=== PATIENT | male | born 1950 | race Caucasian/White ===

== ENCOUNTER → 2017-02-21 | Outpatient (CLI) | payer MEDICARE, OTHER ==
[~2017-02-21] MED LIST: ASP81TEC PO; CITA-105 PO; DILT120C85 PO; DULO60CA58 PO; FINA5TAB6 PO; ISM60TCR PO; ISOS30TA74 PO; LORA10TA7 PO; MELO-195 PO; METO-333 PO; SIMV20TA3 PO; TAMS0.4C2 PO; TRAZ150T42 PO
== END ==
LOC: CARD 12:39
PROVIDERS: ATTEND Internal Medicine Cardiovascular Disease
DX: I25.10 Atherosclerotic heart disease of native coronary artery without angina pectoris (principal); I10 Essential (primary) hypertension; E78.2 Mixed hyperlipidemia; Z72.0 Tobacco use
CPT/HCPCS: 93306

== ENCOUNTER 2017-05-29 10:50 | Outpatient (RCR) | payer MEDICARE, OTHER | END 2017-06-02 | disposition home or self-care (01) | PROVIDERS: ATTEND Orthopaedic Surgery | DX: Z47.89 Encounter for other orthopedic aftercare (principal); M25.512 Pain in left shoulder; M25.812 Other specified joint disorders, left shoulder ==

== ENCOUNTER → 2017-08-06 | Outpatient (CLI) | payer MEDICARE, OTHER ==
[~2017-08-06] MED LIST changes: +ASPI-586 PO; +BUDE10.2 IH; +CATHETER FLUSH 10 ML SYR IV PRN; +CLOP75TA28 PO; +REGADENOSON 0.4 MG/5 ML SYR (LEXISCAN) IV ONE
[2017-08-06 13:20] VITALS: BP 151/81
--- NOTE | 2017-08-07 01:06 | STRESS TEST ---
DATE OF SERVICE: 08/06/2017 LEXISCAN MYOVIEW STRESS TEST REPORT REFERRING PHYSICIAN: Dr. Naya Sutton. Baseline heart rate is 67. Baseline blood pressure is 142/73. Baseline EKG is sinus rhythm with no ischemic changes. In summary, the patient was injected with 10.89 mCi of technetium-99 Myoview and the resting images were obtained. Then, the patient received 0.4 mg of Lexiscan followed by 29.6 mCi of technetium-99 Myoview. Throughout the test, there were no EKG changes. The resting and stress images were reviewed and compared in the short axis, horizontal long axis, and vertical long axis views. Review of the images showed diaphragmatic attenuation with fixed defect involving the whole inferior wall and inferolateral wall with mild reversibility. SSS is 11, SDS 3 and TID value 1.06. On the gated images, the left ventricle appeared to be prominent with end diastolic volume of 108 mL, hypokinesia at the inferior wall and inferoseptum with calculated ejection fraction of 46%. CONCLUSION: 1. The patient tolerated Lexiscan well. 2. Diaphragmatic attenuation with fixed defect involving the whole inferior wall and inferoapical segment with mild ischemia at the inferoapical segment and inferolateral wall. 3. Prominent left ventricle with hypokinesia at the inferior wall and inferoseptum with calculated ejection fraction of 46%. 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
== END ==
LOC: CARD 11:27
PROVIDERS: ATTEND Internal Medicine Cardiovascular Disease
DX: I25.10 Atherosclerotic heart disease of native coronary artery without angina pectoris (principal); I10 Essential (primary) hypertension; E78.2 Mixed hyperlipidemia; Z72.0 Tobacco use
CPT/HCPCS: 78452; 93017

== ENCOUNTER → 2017-08-07 | Outpatient (CLI) | payer MEDICARE, OTHER ==
[~2017-08-07] MED LIST changes: -CATHETER FLUSH 10 ML SYR IV PRN; -REGADENOSON 0.4 MG/5 ML SYR (LEXISCAN) IV ONE
== END ==
LOC: CARD 12:12
PROVIDERS: ATTEND Internal Medicine Cardiovascular Disease
DX: I25.10 Atherosclerotic heart disease of native coronary artery without angina pectoris (principal); I10 Essential (primary) hypertension; E78.5 Hyperlipidemia, unspecified; Z72.0 Tobacco use; I34.0 Nonrheumatic mitral (valve) insufficiency
CPT/HCPCS: 93306

== ENCOUNTER 2017-08-12 09:07 | Outpatient (RCR) | payer MEDICARE, OTHER ==
[~2017-08-12 09:07] MED LIST changes: -ASPI-586 PO; -BUDE10.2 IH; -CLOP75TA28 PO
[2017-08-13] MEDS ORDERED: CLOP75TA28 PO (09:53)
[2017-08-13] MEDS ORDERED: BUDE10.2 IH (09:53)
[2017-08-13] MEDS ORDERED: ASPI-586 PO (09:54)
== END 2017-08-12 09:32 | disposition home or self-care (01) ==
PROVIDERS: ATTEND Orthopaedic Surgery
DX: Z47.89 Encounter for other orthopedic aftercare (principal); M25.512 Pain in left shoulder; M25.812 Other specified joint disorders, left shoulder

== ENCOUNTER 2017-08-13 08:29 | Day surgery (SDC) | payer MEDICARE, OTHER ==
[~2017-08-13] VITALS: Ht 167.6 cm; Wt 83.0 kg
[2017-08-13] VITALS (10 sets, daily range): BP systolic 135–164; BP diastolic 77–96
[2017-08-13] MEDS ORDERED: NS IV 1000 ML 3,000 ML ONE (08:38)
[2017-08-13] MEDS ORDERED: LIDOCAINE 1% INJ 20 ML 20 ML VIAL ONE (08:38)
[2017-08-13] MEDS ORDERED: HEParin 1000 UNIT/ML (10ML VIAL) FOR BOLUS ONE (08:50)
[2017-08-13] MEDS ORDERED: NS IV 1000 ML 1,000 ML IV SCH ×2 (09:00→14:01)
[2017-08-13 09:39] LABS: BILIRUBIN,URINE NEGATIVE (NEGATIVE); CLARITY,URINE CLEAR; COLOR,URINE YELLOW; GLUCOSE, URINE (UA) NEGATIVE (NEGATIVE); KETONES,URINE 1+ (NEGATIVE); LEUKOCYTE ESTERASE ,URINE 1+ (NEGATIVE); MEAN PLATELET VOLUME 9.4 FL (7.4-10.4); NITRITE,URINE NEGATIVE (NEGATIVE); PH,URINE 5 (5-9); PROTEIN,URINE 1+ (NEGATIVE); RED BLOOD COUNT 4.93 10^6/uL (4.35-5.85); UROBILINOGEN,URINE 1 MG/DL (NORMAL); WHITE BLOOD COUNT 8.4 10^3/uL (4.3-11.0)
[2017-08-13 09:42] LABS: HEMOGLOBIN 15.3 G/DL (13.3-17.7)
[2017-08-13 09:48] LABS: ALANINE AMINOTRANSFERASE 11 U/L (0-55); ALBUMIN 3.9 GM/DL (3.2-4.5); ALKALINE PHOSPHATASE 87 U/L (40-136); BILIRUBIN,TOTAL 0.4 MG/DL (0.1-1.0); BUN/CREATININE RATIO 15; CALCIUM 8.8 MG/DL (8.5-10.1); CARBON DIOXIDE 24 MMOL/L (21-32); CHLORIDE 112 MMOL/L (98-107); CHOLESTEROL 144 MG/DL (< 200); CREATININE SERUM 0.97 MG/DL (0.60-1.30); GFR ESTIMATED > 60; GLUCOSE 134 MG/DL (70-105); HDL CHOLESTEROL 27 MG/DL (40-60); POTASSIUM 3.8 MMOL/L (3.6-5.0); SODIUM 144 MMOL/L (135-145); TOTAL PROTEIN 7.2 GM/DL (6.4-8.2); TRIGLYCERIDES 135 MG/DL (<150); VLDL CHOLESTEROL 27 MG/DL (5-40)
[2017-08-13 09:51] LABS: BACTERIA,URINE TRACE /HPF; SQUAMOUS EPITHELIAL CELL,UR 0-2 /HPF; WBC,URINE 0-2 /HPF
[2017-08-13] MEDS ORDERED: BUDE10.2 IH (09:53)
[2017-08-13] MEDS ORDERED: CLOP75TA28 PO (09:53)
--- NOTE | 2017-08-13 09:53 | Diagnostic Imaging Report ---
INDICATION: Coronary artery disease and hypertension. Comparison is made with prior exam from 03/10/2012. FINDINGS: The heart is mildly enlarged but stable. There are changes of median sternotomy and CABG. No infiltrates are detected. There is no failure. No effusion or pneumothorax is seen. There are postop changes in the lower cervical spine. IMPRESSION: Status post CABG. No acute cardiopulmonary process is detected. Dictated by: Dictated on workstation # [id number]
[2017-08-13] MEDS ORDERED: ASPI-586 PO (09:54)
[2017-08-13 09:55] LABS: PROTHROMBIN TIME PATIENT 12.9 SEC (12.2-14.7)
[2017-08-13] MEDS ORDERED: fentaNYL INJECTION 100 MCG/2 ML AMP ONE (13:10)
[2017-08-13] MEDS ORDERED: MIDAZOLAM 5 MG/5 ML (VERSED) VIAL ONE (13:10)
--- NOTE | 2017-08-13 14:00 | Cardiac Procedure Note-CS/ASA ---
Pre-Procedure Note Pre-Op Procedure Note H&P Reviewed The H&P was reviewed, patient examined and no changes noted. Date H&P Reviewed: August 13, 2017 Time H&P Reviewed: 14:00 Conscious Sedation Pre-Proced Time Reviewed: 14:00 ASA Class: 3 Airway Mallampati Classification: (zuni appropriate class) I. II. III, IV Lungs Heart ASA score ASA 1: a normal healthy patient ASA 2: a patient with a mild systemic disease (mid diabetes, controlled hypertension, obesity x ASA 3: a patient with a severe systemic disease that limits activity (angina , COPD, prior Myocardial infarction) ASA 4: a patient with an incapacitating disease that is a constant threat to life (CHF, renal failure) ASA 5: a moribund patient not expected to survive 24 hrs. (ruptured aneurysm) ASA 6: a declared brain patient whose organs are being harvested. For emergent operations, add the letter E after the classification Grade 3 Sedation Plan: Analgesia, Amnesia, Plan communicated to team members, Discussed options with patient/fam, Discussed risks with patient/fam Note The patient is an appropriate candidate to undergo the planned procedure, sedation, and anesthesia. The patient immediately re-assessed prior to indication. DAVID TERESA MD August 13, 2017 14:00
--- NOTE | 2017-08-13 14:02 | Discharge Inst-Post CATH ---
Discharge Inst-CATH Post Cardiac Cath D/C Inst Follow Up/Plan Appointment with Dr. Tovar's office in 2-4 weeks CARDIAC CATH DISCHARGE INSTRUCTIONS *Hold Metformin for 48 hours post heart cath. ACTIVITY * Go Home directly and rest. * Limit activity of the leg (or wrist if it was used) for 7 days including aerobics, swimming, jogging, bicycling, etc. * Restrict stair-climbing for 7 days if possible, if not, climb up with your non -cath leg, then bring together on the same step. * Avoid lifting, pushing, pulling or excessive movement of the affected extremity for 7 days. * Customary sexual activity may be resumed after 2 days-use caution not to use a position that strains or causes pain to the affected extremity. * No driving for 24 hours. * NO SMOKING. * Avoid straining for bowel movements for 7 days. * Gentle walking on level ground is allowed. * Returning to work will depend on the type of procedure and the results. Your doctor will discuss this with you. CALL YOUR DOCTOR FOR ANY OF THE FOLLOWING: *If bleeding from the puncture site occurs- Apply gentle pressure to site with clean cloth and call your doctor or EMS. * If a knot or lump forms under the skin, increases in size, or causes pain. * If bruising appears to be worsening or moving further down your leg instead of disappearing. * Temperature above 101 F. CARE OF YOUR GROIN INCISION; * Bruising or purple discoloration of the skin near the puncture site is common. * You may shower only, no bathtub bathing for 5 days. Be careful to avoid slipping as your leg may feel stiff. * If a closure device was used on your femoral artery, please see the attached guide regarding care of the device and your leg. * REMOVE the dressing from your groin the next day after your procedure in the shower. CARE OF YOUR WRIST INCISION; * Bruising or purple discoloration of the skin near the puncture site is common. * You may shower. * DO NOT submerge wrist. * Remove dressing in 24 hours. DAVID TOVAR MD August 13, 2017 14:02
--- NOTE | 2017-08-13 14:06 | Cardiac Cath Report ---
Cardiac Cath Report Physician (s)/Chief Medical Technologist (s) Physician DAVID TERESA MD Pre-Procedure Diagnosis Pre-Procedure Diagnosis: Coronary artery disease Post-Procedure Note Procedure Start Date: August 13, 2017 Name of Procedure: Left heart catheterization Vein graft angiogram ZIEGLER angiogram Abdominal aortogram Findings/Procedure Note PROCEDURE NOTE: After explaining the procedure to the patient, all pros and cons were explained , all questions were answered. The patient signed the consent and then he was placed on the cardiac catheterization laboratory. Groin was prepped SL fashion local anesthesia was used. Sheath placed in the right femoral artery. Cait right and left catheter were used to access the coronary system, I had difficulties advancing the J-wire across the abdominal aorta, a long exchange wire was used throughout the procedure.Vein Graft evaluated. ZIEGLER evaluated. Pigtail was used to access the left ventricular cavity, pressure was measured, no left ventricular gram was done, the pigtail catheter was placed in the abdominal aorta and evaluate her abdominal aortogram At the end of the procedure the sheath was removed. Closure device was used FINDINGS: Hemodynamics LV 153/20, end-diastolic pressure of 20 Aorta 151/73 mean of 107 ANATOMY: Left Main has mild disease nonobstructive disease Left Anterior Descending has severe disease with patent ZIEGLER to LAD Left Circumflex has [id number] disease nonobstructive disease Right Coronory Artery is occluded and the vein graft is occluded, the distal right is receiving collateral from the left system ZIEGLER to LAD is patent with good flow distally Vein Graft to the right coronary artery is occluded LV Gram was not done, pressure was measured Abdominal aortogram was done in the AP position showed atherosclerotic disease in the abdominal aorta, no dissection or aneurysm, the renal arteries appeared to be normal with no obstructive disease, the superior and inferiorly eccentric arteries appeared normal with no obstructive disease CONCLUSION: 1. Occluded right coronary artery and the vein graft to the right coronary artery with collaterals filling the distal right from the left system 2. Patent ZIEGLER to LAD, the [place] LAD has significant disease proximally. 3. Mild to moderate disease in the circumflex artery nonobstructive disease DISCUSSION AND RECOMMENDATION: Medical therapy is recommended no intervention is warranted, patient already has collaterals to the distal right coronary artery. Anesthesia Type: Conscious Sedation Estimated blood loss (mL): 15 ml Contrast Amount: 72 ml Total Radiation Dose: 376 mGy Post-Procedure Diagnosis Post-operative diagnosis: Chest pain resembling angina Coronary artery disease Hypertension Hyperlipidemia MALICK,BASHAR J MD August 13, 2017 14:06
[2017-08-13] MEDS ORDERED: PATIENT MAY USE OWN MEDS, ALL PO SCH (14:15)
== END 2017-08-13 18:42 | disposition home or self-care (01) ==
LOC: CATH 08:29 → ICU 14:18 → CATH 18:42
PROVIDERS: ATTEND Internal Medicine Cardiovascular Disease
DX: R07.9 Chest pain, unspecified (principal); I25.10 Atherosclerotic heart disease of native coronary artery without angina pectoris; I10 Essential (primary) hypertension; E78.5 Hyperlipidemia, unspecified
CPT/HCPCS: 36415; 71045; 75625; 80053; 80061; 81000; 85027; 85610; 85730; 87081; 93459

== ENCOUNTER → 2018-05-25 | Outpatient (CLI) | payer MEDICARE, OTHER ==
[~2018-05-25] MED LIST changes: +ASPI-586 PO; +BUDE10.2 IH; +CLOP75TA28 PO
== END ==
LOC: CARD 09:24
PROVIDERS: ATTEND Physician Assistant
DX: R07.89 Other chest pain (principal); I25.10 Atherosclerotic heart disease of native coronary artery without angina pectoris; I10 Essential (primary) hypertension; E78.2 Mixed hyperlipidemia; I08.0 Rheumatic disorders of both mitral and aortic valves; Z72.0 Tobacco use
CPT/HCPCS: 93306

== ENCOUNTER → 2018-11-20 | Outpatient (CLI) | payer MEDICARE, OTHER ==
[~2018-11-20] MED LIST changes: -DULO60CA58 PO; +DULO60CA59 PO
[2018-11-20 11:36] LABS: ALBUMIN 4.3 GM/DL (3.2-4.5); BILIRUBIN,TOTAL 0.4 MG/DL (0.1-1.0); CALCIUM 9.7 MG/DL (8.5-10.1); CREATININE SERUM 1.26 MG/DL (0.60-1.30); POTASSIUM 4.1 MMOL/L (3.6-5.0)
== END ==
LOC: LAB 11:00
PROVIDERS: ATTEND Physician Assistant
DX: I25.10 Atherosclerotic heart disease of native coronary artery without angina pectoris (principal); I10 Essential (primary) hypertension; E78.2 Mixed hyperlipidemia; Z72.0 Tobacco use
CPT/HCPCS: 36415; 80053; 80061

== ENCOUNTER 2019-07-25 23:35 | Emergency (ER) | payer MEDICARE, OTHER ==
[~2019-07-25] VITALS: Ht 167 cm; Wt 84.0 kg
[~2019-07-25 23:35] MED LIST changes: +SIMV20TA26 PO
[2019-07-26] MEDS ORDERED: DOXYCYCLINE 100 MG (VIBRAMYCIN) TABLET PO ONE (00:15)
[2019-07-26] MEDS ORDERED: HYDROcodone/APAP 5 MG/325 MG (LORTAB) TAB PO ONE (00:15)
[2019-07-26] MEDS ORDERED: HYDR-83 PO (00:20)
[2019-07-26] MEDS ORDERED: DOXY100T2 PO (00:20)
--- NOTE | 2019-07-26 00:22 | ED General ---
General Chief Complaint: Lower Extremity Stated Complaint: R ANKLE PAIN Nursing Triage Note: TO ED VIA POV AND REQUESTED W/C INTO WAITING ROOM. C/O RIGHT ANKLE PAIN. Nursing Sepsis Screen: No Definite Risk Source of Information: Patient Exam Limitations: No Limitations History of Present Illness Date Seen by Provider: July 25, 2019 Time Seen by Provider: 23:52 Initial Comments This 60-year-old gentleman presents to the emergency room with pain and erythema near and oriented insect bite on the right medial malleolus. The insect bite had been there for a few days and the pain started today. He has erythema in about a 3 cm diameter around the bite. He is afebrile. He denies any injury to the ankle. Allergies and Home Medications Allergies Coded Allergies: atorvastatin calcium (Verified Allergy, Unknown, 03/10/12) Home Medications Aspirin 81 Mg Tablet.dr, 81 MG PO DAILY, (Reported) Budesonide/Formoterol Fumarate 10.2 Gm Hfa.aer.ad, 2 PUFF IH BID, (Reported) Clopidogrel Bisulfate 75 Mg Tablet, 75 MG PO DAILY, (Reported) Diltiazem HCl 120 Mg Capsule.er, 120 MG PO HS, (Reported) Doxycycline Hyclate 100 Mg Tablet, 100 MG PO BID Prescribed by: JORDAN ORDOÑEZ on 07/26/19 0020 Duloxetine HCl 60 Mg Capsule.dr, 60 MG PO DAILY, (Reported) Hydrocodone/Acetaminophen 1 Each Tablet, 1 EACH PO Q6H PRN for PAIN-SEVERE (8- 10) Prescribed by: JORDAN ORDOÑEZ on 07/26/19 0021 Isosorbide Mononitrate 60 Mg Tab, 60 MG PO DAILY, (Reported) Metoprolol Tartrate 25 Mg Tablet, 12.5 MG PO BID, (Reported) TAKES 1/2 (25MG) TABLET Simvastatin 20 Mg Tablet, 20 MG PO HS, (Reported) Patient Home Medication List Home Medication List Reviewed: Yes Review of Systems Review of Systems Constitutional: no symptoms reported EENTM: no symptoms reported Respiratory: no symptoms reported Cardiovascular: no symptoms reported Gastrointestinal: no symptoms reported Genitourinary: no symptoms reported Musculoskeletal: see HPI Skin: see HPI Psychiatric/Neurological: No Symptoms Reported Hematologic/Lymphatic: No Symptoms Reported Past Ufcnwuc-Jogagz-Stltuu Hx Past Med/Social Hx: Reviewed Nursing Past Med/Soc Hx Patient Social History Alcohol Use: Denies Use Recreational Drug Use: No Smoking Status: Current Everyday Smoker Type Used: Cigarettes Recent Foreign Travel: No Contact w/Someone Who Travel: No Recent Infectious Disease Expo: No Recent Hopitalizations: No Physical Abuse: No Sexual Abuse: No Mistreated: No Fear: No Immunizations Up To Date Tetanus Booster (TDap): Unknown Date of Pneumonia Vaccine: Mar 11, 2012 Date of Influenza Vaccine: Feb 18, 2012 Seasonal Allergies Seasonal Allergies: Yes Past Medical History Surgeries: Yes (triple bypass, ing hernia x3, LEFT SHOULDER, NECK) CABG, Orthopedic, Prostatectomy Respiratory: Yes COPD Cardiac: Yes (triple bypass 1998) Hypertension Neurological: No Reproductive Disorders: No Genitourinary: No Prostate Problems Gastrointestinal: No Musculoskeletal: Yes Arthritis Endocrine: No Cataract Cancer: Yes Prostate Psychosocial: Yes Depression Integumentary: No Blood Disorders: No Physical Exam Vital Signs Vital Signs - First Documented 07/25/19 07/26/19 23:48 00:31 Temp 36.6 Pulse 82 Resp 18 B/P (MAP) 167/71 (103) Pulse Ox 97 O2 Delivery Room Air Capillary Refill : Less Than 3 Seconds Height, Weight, BMI Height: 5'6.00" Weight: 183lbs. 0.0oz. 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 Surrounding tender erythema in a diameter of about 3 cm. No fluctuance or fullness to suggest abscess.) Progress/Results/Core Measures Suspected Sepsis Recent Fever Within 48 Hours: No Infection Criteria Present: Suspected New Infection New/Unexplained Altered Menta: No Sepsis Screen: No Definite Risk SIRS Temperature: Pulse: 82 Respiratory Rate: 18 Blood Pressure 167 /71 Mean: 103 Results/Orders My Orders Orders - JORDAN GUERRERO MD Doxycycline Hyclate Tablet (Vibramycin T (07/26/19 00:15) Hydrocodone/Apap 5/325 Tablet (Lortab 5 (07/26/19 00:15) Medications Given in ED Current Medications Medications Dose Ordered Sig/Britany Route Start Time Stop Time Status Last Admin Dose Admin Acetaminophen/ Hydrocodone Bitart 1 tab ONCE ONCE PO 07/26/19 00:15 07/26/19 00:16 DC 07/26/19 00:18 1 TAB Doxycycline Hyclate 100 mg ONCE ONCE PO 07/26/19 00:15 07/26/19 00:16 DC 07/26/19 00:18 100 MG Vital Signs/I&O 07/25/19 07/26/19 23:48 00:31 Temp 36.6 36.6 Pulse 82 76 Resp 18 18 B/P (MAP) 167/71 (103) 148/74 (103) Pulse Ox 97 O2 Delivery Room Air Capillary Refill : Less Than 3 Seconds Blood Pressure Mean: 103 Progress Note : Progress Note Patient appears to have cellulitis associated with the excoriated bug bite. He was started on doxycycline and given hydrocodone for the pain. Departure Impression Primary Impression: Cellulitis of right ankle Disposition: HOME, SELF-CARE Condition: Improved Departure-Patient Inst. Referrals: NO,LOCAL PHYSICIAN (PCP) Primary Care Physician KAYLEE SWANSON (Family) Primary Care Physician Patient Instructions: Cellulitis and Erysipelas (Skin Infections) Add. Discharge Instructions: Complete the 10 days of antibiotic as prescribed. For mild pain you may take Tylenol (acetaminophen) up to 1000 mg every 6 hours as needed. For more severe pain take hydrocodone as prescribed. Return to care if you have worsening symptoms or develop new symptoms such as fever despite taking antibiotics. All discharge instructions reviewed with patient and/or family. Voiced understanding. Scripts Hydrocodone/Acetaminophen (Hydrocodone-Acetamin 5-325 mg) 1 Each Tablet 1 EACH PO Q6H PRN for PAIN-SEVERE (8-10), #5 TAB Prov: JORDAN GUERRERO MD 07/26/19 Doxycycline Hyclate (Doxycycline Hyclate) 100 Mg Tablet 100 MG PO BID, #20 TAB 0 Refills Prov: JORDAN GUERRERO MD 07/26/19 JORDAN GUERRERO MD July 26, 2019 00:22
[2019-07-26 00:31] VITALS: BP 148/74
== END 2019-07-26 00:43 | disposition home or self-care (01) ==
LOC: EDUNIT# 23:35 → ER 23:38
DX: L03.115 Cellulitis of right lower limb (principal); I10 Essential (primary) hypertension; J44.9 Chronic obstructive pulmonary disease, unspecified; F32.9 Major depressive disorder, single episode, unspecified; F17.210 Nicotine dependence, cigarettes, uncomplicated; Z85.46 Personal history of malignant neoplasm of prostate; Z88.8 Allergy status to other drugs, medicaments and biological substances; Z79.82 Long term (current) use of aspirin; Z79.02 Long term (current) use of antithrombotics/antiplatelets; Z95.1 Presence of aortocoronary bypass graft
CPT/HCPCS: 99283

== ENCOUNTER 2019-09-23 21:00 | Observation (INO) | payer MEDICARE, OTHER ==
[~2019-09-23] VITALS: Ht 167.7 cm; Wt 88.3 kg
[2019-09-23] VITALS (11 sets, daily range): BP systolic 145–161; BP diastolic 75–100
[~2019-09-23 21:00] MED LIST changes: +DOXY100T2 PO; +HYDR-83 PO
[2019-09-23] MEDS ORDERED: RT-ALBUTEROL/IPRATROPIUM 3 ML (DUONEB) VIAL ONE (21:12)
[2019-09-23] MEDS ORDERED: ASPIRIN 81 MG CHEW (CHILDREN'S ASA) ONE (21:13)
[2019-09-23] MEDS: NITROGLYCERIN 0.4 MG SL TABS BTL 25'S SL ONE ×2 (21:15→21:22)
[2019-09-23] MEDS: NITROGLYCERIN 0.4 MG SL TABS BTL 25'S SL PRN ×3 (21:15→21:25)
--- NOTE | 2019-09-23 21:22 | ED Chest Pain ---
General Stated Complaint: CP Source: patient Exam Limitations: no limitations History of Present Illness Date Seen by Provider: Sep 23, 2019 Time Seen by Provider: 21:18 Initial Comments to ER with chest pain that began about 3 hours ago while at rest. He initially thought this might be heartburn as it felt like GERD. However the pain persisted so he decided to have it checked out. He has a history of coronary artery disease, no stenting but he does have history of 3 vessel CABG. He also has COPD and smokes 2 packs per day. He has chronic dyspnea on exertion that is "maybe" a little worse than usual. No fevers. Chronic cough unchanged in nature. He was seen in primary care doctor's office today and had some pain in his left hip and was given a shot of steroids plus Toradol. He noticed his blood pressure at home to be elevated. Primary care is Jennifer Swanson, zipper measurer is Dr. Marji. hernandez Timing/Duration: 1-3 hours Severity/Quality: moderate Location: central Radiation: no radiation Activities at Onset: none ASA po DINING CAR SERVER: No Associated Symptoms: shortness of breath (chronic) Allergies and Home Medications Allergies Coded Allergies: atorvastatin calcium (Verified Allergy, Unknown, 03/10/12) Home Medications Aspirin 81 Mg Tablet.dr, 81 MG PO DAILY, (Reported) Budesonide/Formoterol Fumarate 10.2 Gm Hfa.aer.ad, 2 PUFF IH BID, (Reported) Clopidogrel Bisulfate 75 Mg Tablet, 75 MG PO DAILY, (Reported) Diltiazem HCl 120 Mg Capsule.er, 120 MG PO HS, (Reported) Doxycycline Hyclate 100 Mg Tablet, 100 MG PO BID Prescribed by: JORDAN ORDOÑEZ on 07/26/19 0020 Duloxetine HCl 60 Mg Capsule.dr, 60 MG PO DAILY, (Reported) Hydrocodone/Acetaminophen 1 Each Tablet, 1 EACH PO Q6H PRN for PAIN-SEVERE (8- 10) Prescribed by: JORDAN ORDOÑEZ on 07/26/19 002 Isosorbide Mononitrate 60 Mg Tab, 60 MG PO DAILY, (Reported) Metoprolol Tartrate 25 Mg Tablet, 12.5 MG PO BID, (Reported) TAKES 1/2 (25MG) TABLET Simvastatin 20 Mg Tablet, 20 MG PO HS, (Reported) Patient Home Medication List Home Medication List Reviewed: Yes Review of Systems Review of Systems Constitutional: see HPI; No chills, No diaphoresis, No fever, No malaise EENTM: No Symptoms Reported Respiratory: See HPI; Denies Cough; SOA With Exertion (as per his usual) Cardiovascular: See HPI, Chest Pain; Denies Edema, Denies Irregular Heart Rate, Denies Palpitations, Denies Syncope Gastrointestinal: See HPI Genitourinary: No Symptoms Reported Musculoskeletal: see HPI Skin: no symptoms reported Psychiatric/Neurological: No Symptoms Reported Endocrine: No Symptoms Reported Hematologic/Lymphatic: No Symptoms Reported Past Xobmdgu-Feugcy-Mhmzvu Hx Patient Social History Type Used: Cigarettes Recent Hopitalizations: No Immunizations Up To Date Tetanus Booster (TDap): Unknown Date of Pneumonia Vaccine: Mar 11, 2012 Date of Influenza Vaccine: Dec 22, 2018 Seasonal Allergies Seasonal Allergies: Yes Past Medical History Surgeries: Yes (triple bypass, ing hernia x3, LEFT SHOULDER, NECK) CABG, Orthopedic, Prostatectomy Respiratory: Yes COPD Cardiac: Yes (triple bypass 1998) Hypertension Neurological: No Reproductive Disorders: No Genitourinary: No Prostate Problems Gastrointestinal: No Musculoskeletal: Yes Arthritis Endocrine: No Cataract Cancer: Yes Prostate Psychosocial: Yes Depression Integumentary: No Blood Disorders: No Physical Exam Vital Signs Vital Signs - First Documented 09/23/19 21:00 Temp 36.5 Pulse 110 Resp 22 B/P (MAP) 203/108 (139) Pulse Ox 94 O2 Delivery Room Air Capillary Refill : Height, Weight, BMI Height: 5'6.00" Weight: 183lbs. 0.0oz. 83.488679zo; 30.00 BMI Method: General Appearance: No Apparent Distress, WD/WN, Chronically ill Neck: Full Range of Motion, Normal Inspection Respiratory: No Accessory Muscle Use, No Respiratory Distress, Wheezing Cardiovascular: Regular Rate, Rhythm, Normal Peripheral Pulses Gastrointestinal: Normal Bowel Sounds, Non Tender, Soft Extremity: Normal Capillary Refill, Normal Inspection Neurologic/Psychiatric: Alert, Oriented x3 Skin: Normal Color, Warm/Dry Progress/Results/Core Measures Results/Orders Lab Results Laboratory Tests Test 09/23/19 21:12 09/23/19 22:05 Range/Units White Blood Count 12.2 H 4.3-11.0 10^3/uL Red Blood Count 2.38 L 4.35-5.85 10^6/uL Hemoglobin 15.4 13.3-17.7 G/DL Hematocrit 22 L 40-54 % Mean Corpuscular Volume 92 80-99 FL Mean Corpuscular Hemoglobin 65 H 25-34 PG Mean Corpuscular Hemoglobin Concent 71 H 32-36 G/DL Red Cell Distribution Width 14.8 H 10.0-14.5 % Platelet Count 221 130-400 10^3/uL Mean Platelet Volume 10.7 H 7.4-10.4 FL Neutrophils (%) (Auto) 85 H 42-75 % Lymphocytes (%) (Auto) 8 L 12-44 % Monocytes (%) (Auto) 7 0-12 % Eosinophils (%) (Auto) 0 0-10 % Basophils (%) (Auto) 0 0-10 % Neutrophils # (Auto) 10.4 H 1.8-7.8 X 10^3 Lymphocytes # (Auto) 1.0 1.0-4.0 X 10^3 Monocytes # (Auto) 0.8 0.0-1.0 X 10^3 Eosinophils # (Auto) 0.0 0.0-0.3 10^3/uL Basophils # (Auto) 0.0 0.0-0.1 10^3/uL Neutrophils % (Manual) 87 % Lymphocytes % (Manual) 7 % Monocytes % (Manual) 4 % Eosinophils % (Manual) 0 % Basophils % (Manual) 0 % Band Neutrophils 0 % Reactive Lymphocytes 2 % Smudge Cells SLIGHT Polychromasia SLIGHT Anisocytosis SLIGHT Rouleau MARKED Prothrombin Time 13.3 12.2-14.7 SEC INR Comment 1.0 0.8-1.4 Activated Partial Thromboplast Time 34 24-35 SEC D-Dimer 0.61 H 0.00-0.49 UG/ML Sodium Level 139 135-145 MMOL/L Potassium Level 3.9 3.6-5.0 MMOL/L Chloride Level 105 98-107 MMOL/L Carbon Dioxide Level 21 21-32 MMOL/L Anion Gap 13 5-14 MMOL/L Blood Urea Nitrogen 26 H 7-18 MG/DL Creatinine 1.57 H 0.60-1.30 MG/DL Estimat Glomerular Filtration Rate 44 BUN/Creatinine Ratio 17 Glucose Level 332 H 70-105 MG/DL Calcium Level 9.9 8.5-10.1 MG/DL Corrected Calcium 9.8 8.5-10.1 MG/DL Magnesium Level 2.1 1.6-2.4 MG/DL Total Bilirubin 0.3 0.1-1.0 MG/DL Aspartate Amino Transf (AST/SGOT) 13 5-34 U/L Alanine Aminotransferase (ALT/SGPT) 14 0-55 U/L Alkaline Phosphatase 135 40-136 U/L Myoglobin 30.7 10.0-92.0 NG/ML Troponin I < 0.028 <0.028 NG/ML B-Type Natriuretic Peptide 43.2 <100.0 PG/ML Total Protein 7.8 6.4-8.2 GM/DL Albumin 4.1 3.2-4.5 GM/DL My Orders Orders - TREY LI STYLIST APPRENTICE Cbc With Automated Diff (09/23/19:) Magnesium (09/23/19:) Chest 1 View, Ap/Pa Only (09/23/19:) Ekg Tracing (09/23/19 21:17) Comprehensive Metabolic Panel (09/23/19 21:) Myoglobin Serum (09/23/19 21:) Protime With Inr (09/23/19 21:) Partial Thromboplastin Time (09/23/19 21:17) O2 (09/23/19 21:17) Monitor-Rhythm Ecg Trace Only (09/23/19:) Lipid Panel (09/24/19 06:00) Ed Iv/Invasive Line Start (09/23/19 21:17) BNP (09/23/19 21:17) Fibrin Degradation Products (09/23/19 21:17) Nitroglycerin 0.4 Mg Btl 25's (Nitrostat (09/23/19 21:30) Aspirin Chewable Tablet (Baby Aspirin Ch (09/23/19 21:30) Albuterol/Ipra Inhalation Soln (Duoneb I (09/23/19 21:30) Svn Small Volume Nebulizer (09/23/19 21:17) Manual Differential (09/23/19 21:12) Troponin I (09/23/19 21:12) Antacid Suspension (Mylanta Suspension (09/23/19 21:45) Lidocaine 2% Viscous 15 Ml (Xylocaine Vi (09/23/19 21:45) Morphine Injection (Morphine Injection (09/23/19 21:34) Ns Iv 1000 Ml (Sodium Chloride 0.9%) (09/23/19 21:45) Metoprolol Tartrate Injection (Lopressor (09/23/19 22:00) Enoxaparin Injection (Lovenox Injection) (09/23/19 22:00) Coronavirus Sars-Cov-2 So 2018 (09/23/19 22:01) Medications Given in ED Current Medications Medications Dose Ordered Sig/Britany Route Start Time Stop Time Status Last Admin Dose Admin Al Hydrox/Mg Hydrox/Simethicone 30 ml ONCE ONCE PO 09/23/19 21:45 09/23/19 21:46 DC 09/23/19 21:40 30 ML Albuterol/ Ipratropium 3 ml STK-MED ONCE .ROUTE 09/23/19 21:12 09/23/19 21:15 DC 09/23/19 21:18 3 ML Aspirin 81 mg STK-MED ONCE .ROUTE 09/23/19 21:13 09/23/19 21:15 DC 09/23/19 21:14 81 MG Lidocaine HCl 10 ml ONCE ONCE PO 09/23/19 21:45 09/23/19 21:46 DC 09/23/19 21:40 10 ML Metoprolol Tartrate 5 mg ONCE ONCE IV 09/23/19 22:00 09/23/19 22:01 DC 09/23/19 21:57 5 MG Nitroglycerin 0.4 mg UD PRN SL 09/23/19 21:30 09/23/19 21:51 DC 09/23/19 21:25 0.4 MG Vital Signs/I&O 09/23/19 09/23/19 09/23/19 09/23/19 21:00 21:00 21:15 21:20 Temp 36.5 Pulse 110 113 103 Resp 22 17 14 B/P (MAP) 203/108 (139) 155/86 (109) 145/85 (105) Pulse Ox 94 98 98 O2 Delivery Room Air Room Air Room Air 09/23/19 09/23/19 21:25 21:30 Pulse 118 115 Resp 18 16 B/P (MAP) 147/100 (116) 148/82 (104) Pulse Ox 92 94 Departure Communication (Admissions) 2100-initial chest pain rated at 7/10, BP 210/108. HR 99. Given duoneb treatment for audible wheezing, asa+nitro for chest pain. 2128-Has had 2 nitro, BP to 145/97. Chest pain down to 4/10. Second SL nitro given at this time. 2134-After 3rd nitro bp 145/80. Chest pain rated at 3/10. Will give GI cocktail. If not improved will do morphine. EKG Has NO ST elevation. 2149-Age adjusted D-dimer is negative. Chest pain 3/10. BP 155/85, HR 110. Will give lopressor 5mg and 4mg morphine. Impression Primary Impression: CAD (coronary artery disease) Qualified Codes: I25.119 - Atherosclerotic heart disease of [place] coronary artery with unspecified angina pectoris Additional Impressions: Chest pain Qualified Codes: R07.9 - Chest pain, unspecified HTN (hypertension) Disposition: ADMITTED INPATIENT Condition: Stable Admissions Decision to Admit Reason: Admit from ER (General) Decision to Admit/Date: Sep 23, 2019 Time/Decision to Admit Time: 21:36 Departure-Patient Inst. Referrals: NO,LOCAL PHYSICIAN (PCP) Primary Care Physician KAYLEE SWANSON (Family) Primary Care Physician Images Torso/Trunk 1 - Other-See Progress Note TREY LI APRN Sep 23, 2019 21:22
[2019-09-23 21:23] LABS: BASOPHILS % (AUTO) 0 % (0-10); EOSINOPHILS % (AUTO) 0 % (0-10); HEMATOCRIT 22 % (40-54); HEMOGLOBIN 15.4 G/DL (13.3-17.7); LYMPHOCYTES % (AUTO) 8 % (12-44); MEAN CORPUSCULAR HEMOGLOBIN 65 PG (25-34); MEAN CORPUSCULAR HGB CONC 71 G/DL (32-36); MEAN CORPUSCULAR VOLUME 92 FL (80-99); MEAN PLATELET VOLUME 10.7 FL (7.4-10.4); MONOCYTES # (AUTO) 0.8 X 10^3 (0.0-1.0); MONOCYTES % (AUTO) 7 % (0-12); NEUTROPHILS # (AUTO) 10.4 X 10^3 (1.8-7.8); NEUTROPHILS % (AUTO) 85 % (42-75); PLATELET COUNT 221 10^3/uL (130-400); RED CELL DISTRIBUTION WIDTH 14.8 % (10.0-14.5); WHITE BLOOD COUNT 12.2 10^3/uL (4.3-11.0)
[2019-09-23] MEDS ORDERED: ASPIRIN 81 MG CHEW (CHILDREN'S ASA) PO ONE (21:30)
[2019-09-23] MEDS ORDERED: RT-ALBUTEROL/IPRATROPIUM 3 ML (DUONEB) VIAL INH ONE (21:30)
[2019-09-23 21:34] LABS: ALBUMIN 4.1 GM/DL (3.2-4.5); CHLORIDE 105 MMOL/L (98-107); POTASSIUM 3.9 MMOL/L (3.6-5.0); SODIUM 139 MMOL/L (135-145)
[2019-09-23] MEDS ORDERED: morphine INJ 10 MG/ML 1ML (SYR OR VIAL) IVP STA (21:34)
[2019-09-23 21:35] LABS: CALCIUM 9.9 MG/DL (8.5-10.1); PROTHROMBIN TIME PATIENT 13.3 SEC (12.2-14.7)
[2019-09-23 21:37] LABS: GLUCOSE 332 MG/DL (70-105); TOTAL PROTEIN 7.8 GM/DL (6.4-8.2)
[2019-09-23 21:38] LABS: BILIRUBIN,TOTAL 0.3 MG/DL (0.1-1.0); CARBON DIOXIDE 21 MMOL/L (21-32)
[2019-09-23 21:40] LABS: ALKALINE PHOSPHATASE 135 U/L (40-136); CREATININE SERUM 1.57 MG/DL (0.60-1.30); GFR ESTIMATED 44
[2019-09-23 21:41] LABS: BUN/CREATININE RATIO 17
[2019-09-23 21:43] LABS: ALANINE AMINOTRANSFERASE 14 U/L (0-55); MAGNESIUM 2.1 MG/DL (1.6-2.4)
[2019-09-23] MEDS ORDERED: LIDOCAINE 2% VISCOUS 15 ML UDC PO ONE (21:45)
[2019-09-23] MEDS ORDERED: ANTACID SUSP 30 ML UDC (MYLANTA) PO ONE (21:45)
[2019-09-23] MEDS ORDERED: NS IV 1000 ML 1,000 ML IV SCH (21:45)
--- NOTE | 2019-09-23 21:54 | Diagnostic Imaging Report ---
EXAMINATION: Chest 1 view. HISTORY: Chest pain. COMPARISON: 08/13/2017. FINDINGS: Median sternotomy wires are aligned. Heart size is normal for portable technique. No pleural effusion or pneumothorax. There are mild interstitial opacities in the lung bases. IMPRESSION: Mild interstitial opacities in the lung bases concerning for an infection. Dictated by: Dictated on workstation # [id number]
[2019-09-23] MEDS ORDERED: meTOprolol 5 MG/5 ML (LOPRESSOR) VIAL IV ONE (22:00)
[2019-09-23] MEDS ORDERED: ENOXAPARIN 80 MG/0.8 ML (LOVENOX) SYR SC ONE (22:00)
[2019-09-23 22:03] LABS: ANISOCYTOSIS SLIGHT; BAND NEUTROPHILS 0 %; BASOPHILS % (MANUAL) 0 %; EOSINOPHILS % (MANUAL) 0 %; LYMPHOCYTES % (MANUAL) 7 %; MONOCYTES % (MANUAL) 4 %; NEUTROPHILS % (MANUAL) 87 %; POLYCHROMASIA SLIGHT; REACTIVE LYMPHOCYTES 2 %; SMUDGE CELLS SLIGHT
--- NOTE | 2019-09-23 22:05 | NUR ---
COVID SWAB COLLECTED
[2019-09-23 22:10] LABS: ROULEAUX MARKED
--- NOTE | 2019-09-23 22:37 | NUR ---
REPORT TO CARMEN STARKS FOR 423
--- NOTE | 2019-09-23 22:37 | NUR ---
REPORT RECEIVED FROM TEREZA TOVAR FROM ED AT THIS TIME.
--- NOTE | 2019-09-23 23:15 | NUR ---
CARMEN RN ARRIVES TO TAKE PATIENT UP TO 4TH
--- NOTE | 2019-09-23 23:20 | NUR ---
MICHELLE PRUETT JR admitted to room 423-1, with an admitting diagnosis of CHEST PAIN, HYPERTENSION, GABY, on 09/23/19 from ED via WHEELCHAIR, accompanied BY STAFF.MICHELLE PRUETT JR introduced to surroundings, call light, bed controls, phone, TV, temperature control, lights, meal times, smoking policy, visitor policy, side rail policy, bathrooms and showers. Patient Rights given to patient in the handbook. MICHELLE PRUETT JR verbalizes understanding that [facility] is not responsible for the loss or damage to any personal effects or valuables that are kept in the patients posession during their hospitalization.
[2019-09-23] MEDS ORDERED: meTOprolol 5 MG/5 ML (LOPRESSOR) VIAL IV PRN (23:45)
[2019-09-23] MEDS ORDERED: ONDANSETRON 4 MG/2 ML (SDV) Z0FRAN IV PRN (23:45)
[2019-09-23] MEDS ORDERED: morphine INJ 4 MG/ML 1 ML (VIAL/SYRINGE) IV PRN (23:45)
[2019-09-23] MEDS ORDERED: GABAPENTIN 300 MG (NEURONTIN) CAP ONE (23:47)
[2019-09-23] MEDS: GABAPENTIN 300 MG (NEURONTIN) CAP PO SCH (23:54)
[2019-09-23] MEDS: NS IV 1000 ML 1,000 ML IV SCH (23:55)
[2019-09-24] VITALS (15 sets, daily range): BP systolic 138–170; BP diastolic 74–94
[2019-09-24 03:56] LABS: BASOPHILS % (AUTO) 0 % (0-10); EOSINOPHILS % (AUTO) 0 % (0-10); HEMATOCRIT 26 % (40-54); HEMOGLOBIN 13.7 G/DL (13.3-17.7); LYMPHOCYTES # (AUTO) 1.6 X 10^3 (1.0-4.0); LYMPHOCYTES % (AUTO) 12 % (12-44); MEAN CORPUSCULAR HEMOGLOBIN 49 PG (25-34); MEAN CORPUSCULAR HGB CONC 53 G/DL (32-36); MEAN CORPUSCULAR VOLUME 94 FL (80-99); MEAN PLATELET VOLUME 10.4 FL (7.4-10.4); MONOCYTES # (AUTO) 1.2 X 10^3 (0.0-1.0); MONOCYTES % (AUTO) 9 % (0-12); NEUTROPHILS # (AUTO) 10.7 X 10^3 (1.8-7.8); NEUTROPHILS % (AUTO) 79 % (42-75); PLATELET COUNT 206 10^3/uL (130-400); RED CELL DISTRIBUTION WIDTH 14.6 % (10.0-14.5); WHITE BLOOD COUNT 13.5 10^3/uL (4.3-11.0)
[2019-09-24 04:05] LABS: ALBUMIN 3.6 GM/DL (3.2-4.5); CHLORIDE 110 MMOL/L (98-107); POTASSIUM 4.1 MMOL/L (3.6-5.0); SODIUM 142 MMOL/L (135-145)
[2019-09-24 04:07] LABS: GLUCOSE 197 MG/DL (70-105); TOTAL PROTEIN 6.8 GM/DL (6.4-8.2); TRIGLYCERIDES 99 MG/DL (<150); VLDL CHOLESTEROL 20 MG/DL (5-40)
[2019-09-24 04:08] LABS: CARBON DIOXIDE 23 MMOL/L (21-32)
[2019-09-24 04:09] LABS: BILIRUBIN,TOTAL 0.2 MG/DL (0.1-1.0)
[2019-09-24 04:11] LABS: ALKALINE PHOSPHATASE 104 U/L (40-136); CREATININE SERUM 1.13 MG/DL (0.60-1.30); GFR ESTIMATED > 60
[2019-09-24 04:12] LABS: BUN/CREATININE RATIO 23; CHOLESTEROL 158 MG/DL (< 200)
[2019-09-24 04:13] LABS: HDL CHOLESTEROL 31 MG/DL (40-60)
[2019-09-24 04:14] LABS: ALANINE AMINOTRANSFERASE 12 U/L (0-55)
[2019-09-24] MEDS: inSUlin ASPART (NovoLOG) 1 UNIT/0.01 ML (CHARGE PER UNIT) SC SCH ×4 (06:00→20:29)
[2019-09-24] MEDS ORDERED: ASPIRIN E.C. 81 MG (ECOTRIN) TAB PO SCH (09:00)
[2019-09-24] MEDS ORDERED: dilTIAZem120 MG (CARDIZEM CD) CAP PO SCH (09:00)
[2019-09-24] MEDS ORDERED: ISOSORBIDE MONONITRATE 60 MG (IMDUR) TAB PO SCH (09:00)
[2019-09-24] MEDS: meTOprolol TARTRATE 25 MG (LOPRESSOR) TABLET PO SCH ×2 (09:39→20:26)
[2019-09-24] MEDS: NS IV 1000 ML 1,000 ML IV SCH ×2 (09:40→20:26)
--- NOTE | 2019-09-24 11:19 | Consultation-Cardiology ---
HPI-Cardiology Cardiology Consultation Date of Consultation 09/24/19 Date of Admission Time Seen by Provider: 11:15 Indication: chest pain HPI 68-year-old gentleman with history of coronary artery disease, extensive disease, hypertension, started to have left-sided chest pain, came into the emergency room with severe hypertension and chest pain, blood pressure has improved with nitroglycerin and morphine. Currently feeling well. Denied any active chest pain. Has been having chronic stable angina. Denied any palpitation, noted to have mild elevation in troponin level. No acute EKG changes. Home Medications & Allergies Allergies: Coded Allergies: atorvastatin calcium (Verified Allergy, Unknown, 03/10/12) Home Medication List Reviewed: Yes TJH-Nvaetb-Dwbcrb Hx Patient Social History Marital Status: Employed/Student: retired Alcohol Use: Denies Use Recreational Drug Use: No Type Used: Cigarettes Recent Foreign Travel: No Recent Infectious Disease Expo: No Recent Hopitalizations: No Immunizations Up To Date Tetanus Booster (TDap): Unknown Date of Pneumonia Vaccine: Sep 21, 2018 Date of Influenza Vaccine: Dec 22, 2018 Past Medical History Discussed below Family Medical History Family Medical Hx Noncontributory Review of Systems-General Review of Systems Constitutional: see HPI; No chills, No diaphoresis, No fever, No malaise EENTM: see HPI, no symptoms reported Respiratory: see HPI, cough, dyspnea on exertion; No hemoptysis, No orthopnea, No phlegm, No short of breath, No stridor, No wheezing, No other Cardiovascular: no symptoms reported, see HPI, chest pain; No edema, No Hx of Intervention, No palpitations, No syncope, No vascular heart diseas, No other Gastrointestinal: no symptoms reported, see HPI Genitourinary: no symptoms reported, see HPI Musculoskeletal: see HPI Skin: no symptoms reported, see HPI Psychiatric/Neurological: No Symptoms Reported, See HPI Reviewed Test Results Reviewed Test Results Lab Laboratory Tests Test 09/23/19 21:12 09/23/19 22:05 09/24/19 00:12 09/24/19 03:48 Range/Units White Blood Count 12.2 H 13.5 H 4.3-11.0 10^3/uL Red Blood Count 2.38 L 2.79 L 4.35-5.85 10^6/uL Hemoglobin 15.4 13.7 13.3-17.7 G/DL Hematocrit 22 L 26 L 40-54 % Mean Corpuscular Volume 92 94 80-99 FL Mean Corpuscular Hemoglobin 65 H 49 H 25-34 PG Mean Corpuscular Hemoglobin Concent 71 H 53 H 32-36 G/DL Red Cell Distribution Width 14.8 H 14.6 H 10.0-14.5 % Platelet Count 221 206 130-400 10^3/uL Mean Platelet Volume 10.7 H 10.4 7.4-10.4 FL Neutrophils (%) (Auto) 85 H 79 H 42-75 % Lymphocytes (%) (Auto) 8 L 12 12-44 % Monocytes (%) (Auto) 7 9 0-12 % Eosinophils (%) (Auto) 0 0 0-10 % Basophils (%) (Auto) 0 0 0-10 % Neutrophils # (Auto) 10.4 H 10.7 H 1.8-7.8 X 10^3 Lymphocytes # (Auto) 1.0 1.6 1.0-4.0 X 10^3 Monocytes # (Auto) 0.8 1.2 H 0.0-1.0 X 10^3 Eosinophils # (Auto) 0.0 0.0 0.0-0.3 10^3/uL Basophils # (Auto) 0.0 0.0 0.0-0.1 10^3/uL Neutrophils % (Manual) 87 % Lymphocytes % (Manual) 7 % Monocytes % (Manual) 4 % Eosinophils % (Manual) 0 % Basophils % (Manual) 0 % Band Neutrophils 0 % Reactive Lymphocytes 2 % Smudge Cells SLIGHT Polychromasia SLIGHT Anisocytosis SLIGHT Rouleau MARKED Prothrombin Time 13.3 12.2-14.7 SEC INR Comment 1.0 0.8-1.4 Activated Partial Thromboplast Time 34 24-35 SEC D-Dimer 0.61 H 0.00-0.49 UG/ML Sodium Level 139 142 135-145 MMOL/L Potassium Level 3.9 4.1 3.6-5.0 MMOL/L Chloride Level 105 110 H 98-107 MMOL/L Carbon Dioxide Level 21 23 21-32 MMOL/L Anion Gap 13 9 5-14 MMOL/L Blood Urea Nitrogen 26 H 26 H 7-18 MG/DL Creatinine 1.57 H 1.13 0.60-1.30 MG/DL Estimat Glomerular Filtration Rate 44 > 60 BUN/Creatinine Ratio 17 23 Glucose Level 332 H 197 H 70-105 MG/DL Calcium Level 9.9 9.0 8.5-10.1 MG/DL Corrected Calcium 9.8 9.3 8.5-10.1 MG/DL Magnesium Level 2.1 1.6-2.4 MG/DL Total Bilirubin 0.3 0.2 0.1-1.0 MG/DL Aspartate Amino Transf (AST/SGOT) 13 16 5-34 U/L Alanine Aminotransferase (ALT/SGPT) 14 12 0-55 U/L Alkaline Phosphatase 135 104 40-136 U/L Myoglobin 30.7 10.0-92.0 NG/ML Troponin I < 0.028 1.015 *H <0.028 NG/ML B-Type Natriuretic Peptide 43.2 <100.0 PG/ML Total Protein 7.8 6.8 6.4-8.2 GM/DL Albumin 4.1 3.6 3.2-4.5 GM/DL Glucometer 233 H 70-110 MG/DL Triglycerides Level 99 <150 MG/DL Cholesterol Level 158 < 200 MG/DL LDL Cholesterol Direct 126 1-129 MG/DL VLDL Cholesterol 20 5-40 MG/DL HDL Cholesterol 31 L 40-60 MG/DL Test 09/24/19 06:04 09/24/19 09:30 Range/Units Glucometer 160 H 70-110 MG/DL Troponin I 1.129 *H <0.028 NG/ML Physical Exam Physical Exam Vital Signs Vital Signs - First Documented 09/23/19 21:00 Temp 36.5 Pulse 110 Resp 22 B/P (MAP) 203/108 (139) Pulse Ox 94 O2 Delivery Room Air Capillary Refill : Less Than 3 Seconds Height, Weight, BMI Height: 5'6.00" Weight: 183lbs. 0.0oz. 83.564046zx; 31.39 BMI Method: General Appearance: No Apparent Distress, WD/WN, Chronically ill Eyes: Bilateral Eye Normal Inspection, Bilateral Eye PERRL, Bilateral Eye EOMI HEENT: PERRL/EOMI, TMs Normal, Normal ENT Inspection, Pharynx Normal, Moist Mucous Membranes Neck: Full Range of Motion, Normal Inspection Respiratory: No Accessory Muscle Use, No Respiratory Distress, Wheezing Cardiovascular: Regular Rate, Rhythm, No Edema, Normal Peripheral Pulses, Systolic Murmur Gastrointestinal: Normal Bowel Sounds, Non Tender, Soft Back: Normal Inspection, No CVA Tenderness, No Vertebral Tenderness Extremity: Normal Capillary Refill, Normal Inspection Neurologic/Psychiatric: Alert, Oriented x3 Skin: Normal Color, Warm/Dry Lymphatic: No Adenopathy A/P-Cardiology Admission Diagnosis Non-ST elevation myocardial infarction Coronary artery disease Hypertension Hyperlipidemia Assessment/Plan Chest pain, non-ST elevation myocardial infarction known to have coronary artery disease small vessel disease. Currently chest pain-free. Continue to monitor Coronary artery disease, history of CABG 3 done in 1998. Had a cardiac catheterization done in February 2012 which showed severe 2 vessel disease with patent bypass graft, had a vein graft to the right cornea artery and the ZIEGLER to the LAD. The circumflex artery has mild disease proximally no significant obstructive disease. Repeat cardiac catheterization done in July 2017 showed occluded vein graft to the right coronary artery and [place] right coronary artery receiving collaterals from the left system, patent ZIEGLER to LAD with disease at the distal [place] LAD, mild to moderate disease in the circumflex artery. Deemed inoperable in 2017 and treated conservatively. Continue to monitor at this time Aortic valve stenosis, last echocardiogram was done May 2018 showed mild-mod aortic valve stenosis, mild aortic regurgitation, normal LV size and function with EF 55-60 mmHg, PA pressure 30-35 mmHg. unchanged from 2016 Hypertension, restart home medication monitor blood pressure Hyperlipidemia, monitor lipids Bilateral carotid stenosis, underwent a lateral CEA by Dr. Owens in June and September 2017. Followed by Dr. Owens's office Tobaccoism, smokes about one half pack a day for over 40 years. Educated on smoking cessation. Prostate cancer, status post prostatectomy. History of hernia repair surgery in the remote past Mild dyspnea on exertion probably secondary to tobaccoism. Clinical Quality Measures AMI/AHF: ASA po Prior to arrival: No DVT/VTE Risk/Contraindication: Risk Factor Score Per Nursin RFS Level Per Nursing on Admit: 4+=Very High DAVID TERESA MD Sep 24, 2019 11:19
--- NOTE | 2019-09-24 11:35 | History & Physical-Hospitalist ---
History of Present Illness HPI/Chief Complaint Patient is 68-year-old white male who reports he was initiated usual state of health up until around 6 p.m. after eating he developed left precordial chest discomfort that was difficult to describe was not exactly a pressure or pain. He developed a headache and had not taken any nitroglycerin. He denied night sweats chills or fever but because he felt on he took his blood pressure which is around 215/109. This prompted him to come to the emergency room several hours later where he was still having this low level discomfort. It did get better with morphine and nitroglycerin. 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 He continues to smoke 2 packs of cigarettes per day. 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 He was not wearing a mask. This morning he reports his chest pain is resolved and he reports baseline energy level denying any significant myalgia. He reports stable chronic low back pain nonradiating. He reports stable cough and stable clear sputum production. Date Seen 09/24/19 Time Seen by a Provider: 11:00 Attending Physician Jonathan Sykes MD PCP No,Local Physician Referring Physician Date of Admission Sep 23, 2019 at 22:10 Home Medications & Allergies Home Medications Reviewed patient Home Medication Reconciliation performed by pharmacy medication reconciliations automatic equipment technician and/or nursing. Patients Allergies have been reviewed. Allergies Allergies Coded Allergies atorvastatin calcium (Verified Allergy, Unknown, 03/10/12) Past Lijnabz-Vcaspi-Nlwdfx Hx Past Med/Social Hx: Reviewed and Corrections made Patient Social History Marrital Status: Employed/Student: retired Alcohol Use: Denies Use Recreational Drug Use: No Type Used: Cigarettes Recent Foreign Travel: No Contact w/other who traveled: No Recent Hopitalizations: No Recent Infectious Disease Expo: No Immunizations Up To Date Tetanus Booster (TDap): Unknown Date of Pneumonia Vaccine: Sep 21, 2018 Date of Influenza Vaccine: Dec 22, 2018 Seasonal Allergies Seasonal Allergies: Yes Past Medical History Surgeries: CABG, Orthopedic, Prostatectomy Cardiac: Hypertension Reproductive: No Genitourinary: Prostate Problems Musculoskeletal: Arthritis HEENT: Cataract Cancer: Prostate Psychosocial: Depression History of Blood Disorders: No Review of Systems Constitutional: see HPI Physical Exam Physical Exam Vital Signs Vital Signs - First Documented 09/23/19 21:00 Temp 36.5 Pulse 110 Resp 22 B/P (MAP) 203/108 (139) Pulse Ox 94 O2 Delivery Room Air Capillary Refill : Less Than 3 Seconds Height, Weight, BMI Height: 5'6.00" Weight: 183lbs. 0.0oz. 83.208864tk; 31.39 BMI Method: General Appearance: No Apparent Distress, Obese Respiratory: Other (Mild expiratory wheezing mid and upper lung [place] symmetrical by basilar coarse rales and a few scattered rhonchi symmetrical) Cardiovascular: Regular Rate, Rhythm, No Edema, No Gallop, No JVD, Normal Peripheral Pulses, Other (Soft 1 to 2/6 systolic ejection murmur heard best over the aortic outflow tract without evidence for pulsus parvus or tardus.) Gastrointestinal: Normal Bowel Sounds, No Organomegaly, No Pulsatile Mass, Non Tender, Soft Extremity: Normal Capillary Refill, Normal Inspection, Normal Range of Motion, Non Tender, No Calf Tenderness, No Pedal Edema Results Results/Procedures Labs Laboratory Tests 09/23/19 21:12 09/24/19 03:48 Patient resulted labs reviewed. Assessment/Plan Admission Diagnosis 1. Non-ST segment elevation ND current plan is if the patient is COVID negative heart catheter per Dr. Long in the morning. 2. History of coronary artery disease outlined in Dr. Long's note. 3. Hypertension exacerbation secondary to number 1 blood pressure moderating continue current antianginal antihypertensive medication. Admission Status: Inpatient Order (span 2 midnights) Reason for Inpatient Admission: See above Assessment and Plan See admission diagnosis Clinical Quality Measures AMI/AHF: ASA po Prior to arrival: No DVT/VTE Risk/Contraindication: Risk Factor Score Per Nursin RFS Level Per Nursing on Admit: 4+=Very High JONATHAN SYKES MD Sep 24, 2019 11:35
[2019-09-24] MEDS ORDERED: HEParin (CATH LAB) 2,000 ML IV ONE (16:08)
[2019-09-24] MEDS ORDERED: LIDOCAINE 1% INJ 20 ML 20 ML VIAL ONE (16:08)
[2019-09-24] MEDS ORDERED: fentaNYL INJECTION 100 MCG/2 ML AMP ONE (16:16)
[2019-09-24] MEDS ORDERED: MIDAZOLAM 5 MG/5 ML (VERSED) VIAL ONE (16:16)
--- NOTE | 2019-09-24 16:40 | NUR ---
patient to cardiac cath technician at this time, via cart.
--- NOTE | 2019-09-24 16:49 | Cardiac Procedure Note-CS/ASA ---
Pre-Procedure Note Pre-Op Procedure Note H&P Reviewed The H&P was reviewed, patient examined and no changes noted. Date H&P Reviewed: Sep 24, 2019 Time H&P Reviewed: 16:48 Conscious Sedation Pre-Proced Time 16:48 ASA Score 3 For ASA 3 and 4: Consider anesthesia and medical clearance. Also, for patients with a history of failed moderate sedation consider anesthesia. Airway Lungs Heart ASA score ASA 1: a normal healthy patient ASA 2: a patient with a mild systemic disease (mid diabetes, controlled hypertension, obesity x ASA 3: a patient with a severe systemic disease that limits activity (angina, COPD, prior Myocardial infarction) ASA 4: a patient with an incapacitating disease that is a constant threat to life (CHF, renal failure) ASA 5: a moribund patient not expected to survive 24 hrs. (ruptured aneurysm) ASA 6: a declared brain- patient whose organs are being harvested. For emergent operations, add the letter E after the classification Mallampati Classification Grade 3 Sedation Plan Analgesia, Amnesia, Plan communicated to team members, Discussed options with patient/fam, Discussed risks with patient/fam The patient is an appropriate candidate to undergo the planned procedure, sedation, and anesthesia. The patient immediately re-assessed prior to indication. DAVID TERESA MD Sep 24, 2019 16:49
[2019-09-24] MEDS ORDERED: NS IV 1000 ML 1,000 ML IV SCH (17:12)
[2019-09-24] MEDS ORDERED: PATIENT MAY USE OWN MEDS, ALL PO SCH (17:15)
--- NOTE | 2019-09-24 17:15 | Discharge Inst-Post CATH ---
Discharge Inst-CATH/EP Problems Reviewed?: Yes Post Cardiac Cath/EP D/C Inst Follow Up/Plan Appointment with Dr. TERESA's office in 4 weeks <b>CARDIAC CATH/EP PROCEDURE DISCHARGE INSTRUCTIONS</b> ACTIVITY * Go Home directly and rest. * Limit activity of the leg (or wrist if it was used) for 7 days including aerobics, swimming, jogging, bicycling, etc. * Restrict stair-climbing for 7 days if possible, if not, climb up with your non-cath leg, then bring together on the same step. * Avoid lifting, pushing, pulling or excessive movement of the affected extremity for 7 days. * Customary sexual activity may be resumed after 2 days-use caution not to use a position that strains or causes pain to the affected extremity. * No driving for 24 hours. * NO SMOKING. * Avoid straining for bowel movements for 7 days. * Gentle walking on level ground is allowed. * Returning to work will depend on the type of procedure and the results. Your doctor will discuss this with you. CALL YOUR DOCTOR FOR ANY OF THE FOLLOWING: *If bleeding from the puncture site occurs- Apply gentle pressure to site with clean cloth and call your doctor or EMS. * If a knot or lump forms under the skin, increases in size, or causes pain. * If bruising appears to be worsening or moving further down your leg instead of disappearing. * Temperature above 101 F. CARE OF YOUR GROIN INCISION; * Bruising or purple discoloration of the skin near the puncture site is common. * You may shower only, no bathtub bathing for 5 days. Be careful to avoid slipping as your leg may feel stiff. * If a closure device was used on your femoral artery, please see the attached guide regarding care of the device and your leg. * Leave dressing on FOR 24 hours. CARE OF YOUR WRIST INCISION; * Bruising or purple discoloration of the skin near the puncture site is common. * You may shower. * DO NOT submerge wrist. * Leave dressing on FOR 24 hours. DAVID TERESA MD Sep 24, 2019 17:15
--- NOTE | 2019-09-24 17:19 | Cardiac Cath Report ---
Cardiac Cath Report Physician (s)/Warpman (s) Physician DVAID TERESA MD Pre-Procedure Diagnosis Pre-Procedure Diagnosis: Coronary artery disease Post-Procedure Note Procedure Start Date: Sep 24, 2019 Name of Procedure: Left heart catheterization Left ventriculogram Vein graft angiogram ZIEGLER angiogram Findings/Procedure Note PROCEDURE NOTE: 68-year-old gentleman with history of coronary artery disease, CABG, admitted with severe hypertension, elevated troponin and chest pain. No acute EKG changes. Decision was made to proceed with cardiac catheterization After explaining the procedure to the patient, all pros and cons were explained, all questions were answered. The patient signed the consent and then he was placed on the cardiac catheterization laboratory. Groin was prepped SL fashion local anesthesia was used. Sheath placed in the artery. Cait right and left catheter were used to access the coronary system.Vein Graft evaluated. ZIEGLER evaluated. Pigtail was used to access the left ventricular cavity. Left ventriculogram was done At the end of the procedure the sheath was removed. Closure device was used FINDINGS: Hemodynamics LV 164/23, end-diastolic pressure of 23 Aorta 180/75 mean of 87 ANATOMY: Left Main has mild disease nonobstructive disease Left Anterior Descending is totally occluded, patent ZIEGLER to LAD with distal LAD disease Left Circumflex has mild to moderate disease proximally nonobstructive disease Right Coronory Artery is occluded and the vein graft to the right coronary artery is occluded, getting collateral from the left system ZIEGLER to LAD is patent, moderate disease in the distal LAD Vein Graft to the right coronary artery is occluded LV Gram was done showing normal left ventricular size, systolic function is preserved estimated ejection fraction 50 percent CONCLUSION: 1. Small vessel disease with occluded right coronary artery and vein graft to the right getting collateral from the left system 2. Patent ZIEGLER to LAD 3. Mild to moderate disease in the circumflex artery that is not bypassed 4. Normal left ventricular size, EF 50 percent, elevated left ventricular end- diastolic pressure due to hypertensive heart disease DISCUSSION AND RECOMMENDATION: Maximize medical therapy, emphasize compliance with medication and smoking cessation. Anesthesia Type: Conscious Sedation Estimated blood loss (mL): 25 ml Contrast Amount: 36 ml Total Radiation Dose: 405 mGy Post-Procedure Diagnosis Post-operative diagnosis: Non-ST elevation myocardial infarction Malignant hypertension Hyperlipidemia Tobaccoism DAVID TERESA MD Sep 24, 2019 17:19
[2019-09-24] MEDS: GABAPENTIN 300 MG (NEURONTIN) CAP PO SCH (20:25)
== END 2019-09-24 22:02 | disposition home or self-care (01) ==
LOC: EDUNIT# 21:00 → ER 21:02 → 4TH 22:10
PROVIDERS: ADMIT Internal Medicine; ATTEND Internal Medicine
DX: I21.4 Non-ST elevation (NSTEMI) myocardial infarction (principal); I25.118 Atherosclerotic heart disease of native coronary artery with other forms of angina pectoris; I11.9 Hypertensive heart disease without heart failure; E78.5 Hyperlipidemia, unspecified; J44.9 Chronic obstructive pulmonary disease, unspecified; F32.9 Major depressive disorder, single episode, unspecified; M19.90 Unspecified osteoarthritis, unspecified site; I65.23 Occlusion and stenosis of bilateral carotid arteries; R05 Cough; F17.210 Nicotine dependence, cigarettes, uncomplicated; Z79.51 Long term (current) use of inhaled steroids; Z79.82 Long term (current) use of aspirin; Z79.899 Other long term (current) drug therapy; Z88.8 Allergy status to other drugs, medicaments and biological substances; Z85.46 Personal history of malignant neoplasm of prostate; Z90.89 Acquired absence of other organs; Z95.1 Presence of aortocoronary bypass graft
CPT/HCPCS: 71045; 80053 ×2; 80061; 82962; 83735; 83874; 83880; 84484 ×2; 85007; 85025; 85027; 85379; 85610; 85730; 93005 ×2; 93041; 93459; 96361; 96372; 96374; 96375; 99284; C1894; U0002; 36415; 87635

== ENCOUNTER → 2020-01-19 | Day surgery (SDC) | payer MEDICARE, OTHER ==
[~2020-01-19] VITALS: Ht 167.7 cm; Wt 88.2 kg
[~2020-01-19] MED LIST changes: +ACHD5005 PO; -HYDR-83 PO; +LIDOCAINE 1% INJ 20 ML 20 ML VIAL ONE
[2020-01-19 12:55] VITALS: BP 154/80
--- NOTE | 2020-01-19 14:11 | Implantation of Loop Monitor ---
Implant of Loop Monitior IMPLANTATION OF LOOP MONITOR REPORT DATE OF PROCEDURE: 01/19/20 PREOP DIAGNOSIS: Syncope POSTOP DIAGNOSIS: Syncope PROCEDURE DETAILS: The patient is a 69 male with history of coronary artery disease, recently started to have multiple syncopal episode. Therefore implantable loop recorder was discussed and agreed with the patient. Informed consent was taken. All risks and complications were discussed at length. The patient was draped and prepped in the usual sterile fashion. Local anesthesia was lidocaine, which was given in the substernal area close to the 4th intercostal space. Loop monitor [employer] with serial number [id number] was implanted according to the protocol. Steri- Strips were placed at the end of the procedure. There were no complications and the patient tolerated the procedure well. ANESTHESIA: Local anesthesia with lidocaine. COMPLICATIONS: None CONTRAST/FLUOROSCOPY: None CONCLUSION: Successful implantation of loop monitor with no complication FINAL DIAGNOSIS: Syncope Coronary artery disease Hypertension Hyperlipidemia DAVID TERESA MD Jan 19, 2020 2:11 pm
== END ==
LOC: CATH 12:31
PROVIDERS: ATTEND Internal Medicine Cardiovascular Disease
DX: R55 Syncope and collapse (principal); I25.118 Atherosclerotic heart disease of native coronary artery with other forms of angina pectoris; I10 Essential (primary) hypertension; E78.2 Mixed hyperlipidemia; I65.23 Occlusion and stenosis of bilateral carotid arteries; I35.2 Nonrheumatic aortic (valve) stenosis with insufficiency; F17.210 Nicotine dependence, cigarettes, uncomplicated; E66.9 Obesity, unspecified; Z68.31 Body mass index [BMI] 31.0-31.9, adult; Z79.82 Long term (current) use of aspirin; Z79.899 Other long term (current) drug therapy; Z88.8 Allergy status to other drugs, medicaments and biological substances; Z85.46 Personal history of malignant neoplasm of prostate; Z95.1 Presence of aortocoronary bypass graft; Z80.9 Family history of malignant neoplasm, unspecified; Z83.3 Family history of diabetes mellitus
CPT/HCPCS: 33285; C1764

== ENCOUNTER → 2020-01-31 | Outpatient (CLI) | payer MEDICARE, OTHER ==
[~2020-01-31] MED LIST changes: -LIDOCAINE 1% INJ 20 ML 20 ML VIAL ONE
== END ==
LOC: CARD 09:00
PROVIDERS: ATTEND Internal Medicine Cardiovascular Disease
DX: I25.10 Atherosclerotic heart disease of native coronary artery without angina pectoris (principal); I11.9 Hypertensive heart disease without heart failure; I35.0 Nonrheumatic aortic (valve) stenosis; I35.1 Nonrheumatic aortic (valve) insufficiency; E78.2 Mixed hyperlipidemia; R55 Syncope and collapse
CPT/HCPCS: 93306

== ENCOUNTER → 2020-01-31 | Outpatient (CLI) | payer MEDICARE, OTHER | LOC: LABNPT 05:28 | PROVIDERS: ATTEND Internal Medicine Cardiovascular Disease | DX: Z01.812 Encounter for preprocedural laboratory examination (principal); Z20.828 Contact with and (suspected) exposure to other viral communicable diseases | CPT/HCPCS: 87635 ==

== ENCOUNTER → 2020-07-26 | Outpatient (CLI) | payer MEDICARE, OTHER ==
[~2020-07-26] MED LIST changes: -ISM60TCR PO; +ISOS60TA63 PO
[2020-07-26 13:13] LABS: ALBUMIN 4.1 GM/DL (3.2-4.5); BILIRUBIN,TOTAL 0.4 MG/DL (0.1-1.0); CALCIUM 9.6 MG/DL (8.5-10.1); CREATININE SERUM 1.59 MG/DL (0.60-1.30); POTASSIUM 4.5 MMOL/L (3.6-5.0); TOTAL PROTEIN 7.9 GM/DL (6.4-8.2)
== END ==
LOC: CARD 12:33
PROVIDERS: ATTEND Internal Medicine Cardiovascular Disease
DX: E78.2 Mixed hyperlipidemia (principal); I10 Essential (primary) hypertension; I08.0 Rheumatic disorders of both mitral and aortic valves
CPT/HCPCS: 36415; 80053; 80061; 93306

== ENCOUNTER 2021-01-12 16:07 | Emergency (ER) | payer MEDICARE, OTHER ==
[~2021-01-12] VITALS: Ht 167.7 cm; Wt 96.7 kg
[2021-01-12] MEDS ORDERED: FLUORESCEIN (FLUOR-I-STRIPS) 1 MG STRP OU ONE (17:00)
[2021-01-12] MEDS ORDERED: TETRACAINE 0.5% OPHTH SOLN 4 ML BTL (SINGLE DOSE ONLY) OU ONE (17:00)
[2021-01-12] MEDS ORDERED: BSS 15 ML IR ONE (17:00)
[2021-01-12] MEDS ORDERED: TETANUS,DIPTH,PERTUSS P/F (BOOSTRIX) 0.5 ML VIAL IM ONE (17:15)
--- NOTE | 2021-01-12 17:21 | ED General ---
General Chief Complaint: Trauma-Non Activation Stated Complaint: FALL/R EYE INJ History of Present Illness Date Seen by Provider: Jan 12, 2021 Time Seen by Provider: 16:46 Initial Comments 70 year old male presents to the ER after a fall with trauma to right eye/cheek. Patient was attempting to get out of his tractor to fix his mower blade. States he kind of remembers getting out of the tractor, but that he must have fell and lost consciousness. Patient states he had a bowel movement while unconscious. He called his doctor who told him to come to the ER to be evaluated. Has a small hematoma on the right inferior orbital rim. His right eye is bloodshot and patients granddaughter thought he may of been bleeding from it, it is not actively bleeding. Patient states the pain has radiated from the inferior orbital arch all the way around his eye and he has a headache with a stabbing pa in at the superior orbital rim. Rates the pain a 6/10 at rest. Patient has a small abrasion on his left tibia just below the knee. Patient is on blood thinners, is a smoker, and is a recently diagnosed diabetic. Denies N/V, extremity pain, and back pain from incident. Timing/Duration: 1-3 Hours Associated Systoms: Shortness of Air, Syncope (with defecation ) (ILAN BELTRAN) Allergies and Home Medications Allergies Coded Allergies: atorvastatin calcium (Verified Allergy, Unknown, 03/10/12) Patient Home Medication List Home Medication List Reviewed: Yes (PRAMOD CAPONE MD) Aspirin (Aspir 81) 81 Mg Tablet.dr, 81 MG PO DAILY, (Reported) Entered as Reported by: KAYLEE CORBIN on 08/13/17 0954 Budesonide/Formoterol Fumarate (Symbicort 160-4.5 Mcg Inhaler) 10.2 Gm Hfa.aer.ad, 2 PUFF IH BID, (Reported) Entered as Reported by: KAYLEE CORBIN on 08/13/17 09 Ciprofloxacin HCl (Ciloxan) 5 Ml Drops, 2 DROPS OP Q6H Prescribed by: PRAMOD CAPONE on 01/12/21 180 Clopidogrel Bisulfate (Clopidogrel) 75 Mg Tablet, 75 MG PO DAILY, (Reported) Entered as Reported by: KAYLEE CORBIN on 08/13/17 09 Diltiazem HCl (Diltiazem ER) 120 Mg Capsule.er, 120 MG PO HS, (Reported) Entered as Reported by: VITO SANCHEZ on 02/29/16805 Doxycycline Hyclate (Doxycycline Hyclate) 100 Mg Tablet, 100 MG PO BID Prescribed by: JORDAN ORDOÑEZ on 07/26/19 0020 Duloxetine HCl (Duloxetine HCl) 60 Mg Capsule.dr, 60 MG PO DAILY, (Reported) Entered as Reported by: VITO SANCHEZ on 02/29/16 08 Hydrocodone/Acetaminophen (Hydrocodone-Acetamin 5-325 mg) 1 Each Tablet, 1 EACH PO Q6H PRN for PAIN-SEVERE (8-10) Prescribed by: JORDAN ORDOÑEZ on 07/26/19 002 Isosorbide Mononitrate (Isosorbide Mononitrate ER) 60 Mg Tab, 60 MG PO DAILY, (Reported) Entered as Reported by: VITO SANCHEZ on 02/29/16805 Metoprolol Tartrate (Metoprolol Tartrate) 25 Mg Tablet, 12.5 MG PO BID, (Reported) Entered as Reported by: VITO SANCHEZ on 02/29/16805 Simvastatin (Simvastatin) 20 Mg Tablet, 20 MG PO HS, (Reported) Entered as Reported by: BEBETO KEMP on 03/06/16 1512 Review of Systems Review of Systems EENTM: No hearing loss, No ear pain Respiratory: No hemoptysis; short of breath Cardiovascular: No chest pain, No palpitations Gastrointestinal: No abdominal pain, No nausea, No vomiting Genitourinary: No dysuria, No frequency Musculoskeletal: back pain (chronic) Psychiatric/Neurological: Headache Hematologic/Lymphatic: Easy Bleeding (on plavix) (ILAN BELTRAN) Constitutional: see HPI (PRAMOD CAPONE MD) Past Bbboiog-Lsxswb-Oipsfm Hx Patient Social History Tobacco Use?: Yes Tobacco type used: Cigarettes Smoking Status: Heavy Tobacco Smoker Substance use?: No (ILAN BELTRAN) Immunizations Up To Date Tetanus Booster (TDap): Unknown (ILAN BELTRAN) Seasonal Allergies Seasonal Allergies: Yes (ILAN BELTRAN) Past Medical History Surgeries: Yes (triple bypass, ing hernia x3, LEFT SHOULDER, NECK) CABG, Prostatectomy Respiratory: No COPD Currently Using CPAP: No Currently Using BIPAP: No Cardiac: Yes Coronary Artery Disease, Heart Murmur, High Cholesterol, Hypertension, Syncope Neurological: No Reproductive Disorders: No Genitourinary: No Prostate Problems Gastrointestinal: No Musculoskeletal: Yes Arthritis Endocrine: No Cataract Cancer: Yes Prostate Did You Recieve Any Treatments: Yes What Type of Treatment Did You: Surgical Intervention Psychosocial: Yes Depression Integumentary: No Blood Disorders: No Adverse Reaction/Blood Tranf: No (RUBYILAN) Physical Exam Vital Signs Vital Signs - First Documented 01/12/21 16:31 Temp 36.7 Pulse 88 Resp 20 B/P (MAP) 150/83 (105) Pulse Ox 94 O2 Delivery Room Air (PRAMOD CAPONE MD) Vital Signs Capillary Refill : (RUBYILAN) Height, Weight, BMI Height: 5'6.00" Weight: 183lbs. 0.0oz. 83.435082pv; 31.36 BMI Method: General Appearance: WD/WN, Anxious Eyes: Left Eye Normal Inspection HEENT: Other (conjunctivitis right eye) Respiratory: Chest Non Tender, Wheezing Cardiovascular: Regular Rate, Rhythm, Systolic Murmur Gastrointestinal: Non Tender, Soft Rectal: Deferred Neurologic/Psychiatric: Alert, Oriented x3 Skin: Normal Color, Warm/Dry, Other (hematoma right inferior orbital rim) (ILAN BELTRAN) Procedures/Interventions Eye : Location: right eye Eye Irrigated w/ Saline (ccs): 30 Anesthesia (gtts): Tetracaine Progress/Procedure Conclusion Slit lamp used to evaluate the right eye with flourscein stain. evidence of abrasion to the right cornea from the 6 o/clock position, scattered up to the 9 o'clovk position. PERRL; EOMI; no limitiation of upward gaze (PRAMOD CAPONE MD) Progress/Results/Core Measures Suspected Sepsis SIRS Temperature: Pulse: Respiratory Rate: Blood Pressure / Mean: (ILAN BELTRAN) Results/Orders My Orders Orders - PRAMOD CAPONE MD Ct Head/Face/Cervical Wo (01/12/21 16:51) Tetracaine 0.5% Ophth Amada Sdv (Tetracai (01/12/21 17:00) Fluorescein Strips (Ijjdx-Y-Jbtwbe) (01/12/21 17:00) Balanced Salt Irrigation Soln (Bss Irrig (01/12/21 17:00) Dipht,Pertuss(Acell),Tet Adult (Boostrix (01/12/21 17:15) Naproxen Tablet (Naprosyn Tablet) (01/12/21 18:15) (PRAMOD CAPONE MD) Medications Given in ED (PRAMOD CAPONE MD) Vital Signs/I&O 01/12/21 01/12/21 16:31 18:30 Temp 36.7 Pulse 88 68 Resp 20 18 B/P (MAP) 150/83 (105) 149/78 Pulse Ox 94 95 O2 Delivery Room Air Room Air (PRAMOD CAPONE MD) Vital Signs/I&O Capillary Refill : (ILAN BELTRAN) Progress Note : Progress Note Upon examination with dye patient does have corneal abrasion on right eye. (ILAN BELTRAN) ECG Initial ECG Impression Date: Jan 12, 2021 (ILAN BELTRAN) Diagnostic Imaging Diagonstic Imaging: CT Plain Films/CT/US/NM/MRI: facial bones, head Comments NAME: MICHELLE PRUETT [facility] REC#: [id number] PT STATUS: REG ER : 1950 PHYSICIAN: PRAMOD CAPONE MD ADMIT DATE: 01/12/21/ER Draft Date of Exam:01/12/21 CT HEAD/FACE/CERVICAL WO PROCEDURE: CT head, face, and cervical spine without contrast. TECHNIQUE: Multiple contiguous axial images were obtained through the head, neck, and facial bones without the use of intravenous contrast. Sagittal and coronal reformations through the cervical spine and facial bones were also performed. Auto Exposure Controls were utilized during the CT exam to meet ALARA standards for radiation dose reduction. INDICATION: Fall, hit face. Injury. COMPARISON: None available. FINDINGS: Head: No intracranial hyperdense hemorrhage or space-occupying mass. No hydrocephalus or midline shift. 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 No skull fracture. Paranasal sinuses are clear. Small effusion within the right mastoid air cells. Face: Right premaxillary and infraorbital soft tissue swelling. No globe rupture. No fracture of the nasal bones or osseous nasal septum. Zygomatic arches, maxillary sinus meehan and the orbits are all intact. Pterygoid plates are intact. Temporomandibular joints are in normal alignment. No mandibular fracture. Patient is edentulous. Cervical spine: Straightening of cervical spine is present. No acute fracture or traumatic malalignment. ACDF of C6-C7 has solid interbody fusion. No hardware failure. Mild emphysema of lung apices. No cervical lymphadenopathy. IMPRESSION: 1. No acute intracranial hemorrhage or skull fracture. 2. Right periorbital soft tissue swelling. No fracture of the mid face or mandible. 3. No acute fracture or traumatic malalignment in the cervical spine. Dictated on workstation # [id number] Dict: 01/12/211726 Trans: 01/12/211740 [facility] [id number] Interpreted by: JUAN CERVANTES MD Electronically signed by: (PRAMOD CAPONE MD) Departure Impression Primary Impression: Traumatic hematoma of right eyelid Qualified Codes: S00.11XA - Contusion of right eyelid and periocular area, initial encounter Additional Impressions: Corneal abrasion, right Qualified Codes: S05.01XA - Injury of conjunctiva and corneal abrasion without foreign body, right eye, initial encounter Conjunctivitis Qualified Codes: H10.31 - Unspecified acute conjunctivitis, right eye Disposition: 01 HOME, SELF-CARE Condition: Stable Departure-Patient Inst. Decision time for Depature: 18:07 (PRAMOD CAPONE MD) Referrals: TA SALDIVAR OD NO,LOCAL PHYSICIAN (PCP) Primary Care Physician Patient Instructions: Conjunctivitis (Noninfectious Pinkeye) (DC), HEMATOMA Add. Discharge Instructions: Put an ice pack over the contusion/hematoma on your right eye. Xtgk-qfi-ojcljat Aleve, 2 pills with food twice a day as needed for pain. Use the eyedrops 2 drops in your right eye four times a day for the next week. If you notice increasing redness, drainage from the eye, worsening blurry vision please come back to the emergency department for reevaluation. Also if you develop significant headache with nausea and vomiting, problems with balance or coordination please come back to the emergency department for reevaluation. 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 SALDIVAR. Please call his office for a follow-up appointment in 1 week to ensure that the scratch on your eye is healing. Scripts Ciprofloxacin HCl (Ciloxan) 5 Ml Drops 2 DROPS OP Q6H for 5 Days, #1 DROPS 1 Refill 3 Drops Each Ear Prov: PRAMOD CAPONE MD 01/12/21 I have seen and evaluated the patient with the medical student, I agree with his HPI, review of systems, past medical family and social history. I have performed my own independent history and physical examination. Patient has pretty significant corneal abrasion between the six and 9 o'clock position to the right eye. No evidence of globe rupture on CT, no retrobulbar hematoma is noted. He does not have a head bleed or neck fracture. No facial fractures are noted. Home with conservative care as well as eyedrops for his conjunctivitis. Return precautions given. All questions sought and answered. Patient is stable for discharge. (PRAMOD CAPONE MD) ILAN BELTRAN Jan 12, 2021 17:21 PRAMOD CAPONE MD Jan 12, 2021 17:46
--- NOTE | 2021-01-12 17:42 | Diagnostic Imaging Report ---
PROCEDURE: CT head, face, and cervical spine without contrast. TECHNIQUE: Multiple contiguous axial images were obtained through the head, neck, and facial bones without the use of intravenous contrast. Sagittal and coronal reformations through the cervical spine and facial bones were also performed. Auto Exposure Controls were utilized during the CT exam to meet ALARA standards for radiation dose reduction. INDICATION: Fall, hit face. Injury. COMPARISON: None available. FINDINGS: Head: No intracranial hyperdense hemorrhage or space-occupying mass. No hydrocephalus or midline shift. 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 No skull fracture. Paranasal sinuses are clear. Small effusion within the right mastoid air cells. Face: Right premaxillary and infraorbital soft tissue swelling. No globe rupture. No fracture of the nasal bones or osseous nasal septum. Zygomatic arches, maxillary sinus meehan and the orbits are all intact. Pterygoid plates are intact. Temporomandibular joints are in normal alignment. No mandibular fracture. Patient is edentulous. Cervical spine: Straightening of cervical spine is present. No acute fracture or traumatic malalignment. ACDF of C6-C7 has solid interbody fusion. No hardware failure. Mild emphysema of lung apices. No cervical lymphadenopathy. IMPRESSION: 1. No acute intracranial hemorrhage or skull fracture. 2. Right periorbital soft tissue swelling. No fracture of the mid face or mandible. 3. No acute fracture or traumatic malalignment in the cervical spine. Dictated by: Dictated on workstation # [id number]
[2021-01-12] MEDS ORDERED: CIPR5DRO OP (18:09)
[2021-01-12] MEDS ORDERED: NAPROXEN 250 MG (NAPROSYN) TABLET PO ONE (18:15)
[2021-01-12 18:30] VITALS: BP 149/78
== END 2021-01-12 18:16 | disposition home or self-care (01) ==
LOC: EDUNIT# 16:07 → ER 16:08
DX: S00.11XA Contusion of right eyelid and periocular area, initial encounter (principal); H10.9 Unspecified conjunctivitis; J44.9 Chronic obstructive pulmonary disease, unspecified; I10 Essential (primary) hypertension; E78.00 Pure hypercholesterolemia, unspecified; I25.10 Atherosclerotic heart disease of native coronary artery without angina pectoris; F32.9 Major depressive disorder, single episode, unspecified; F17.210 Nicotine dependence, cigarettes, uncomplicated; Z23 Encounter for immunization; Z79.899 Other long term (current) drug therapy; Z79.82 Long term (current) use of aspirin; Z79.01 Long term (current) use of anticoagulants; W18.30XA Fall on same level, unspecified, initial encounter
CPT/HCPCS: 70450; 70486; 72125; 90715

== ENCOUNTER → 2022-05-24 | Outpatient (CLI) | payer MEDICARE, OTHER ==
[~2022-05-24] MED LIST changes: +CIPR5DRO OP
== END ==
LOC: CARD 07:59
DX: I11.0 Hypertensive heart disease with heart failure (principal); I34.0 Nonrheumatic mitral (valve) insufficiency; I35.0 Nonrheumatic aortic (valve) stenosis
CPT/HCPCS: 93306

== ENCOUNTER → 2022-06-26 | Outpatient (CLI) | payer MEDICARE, OTHER ==
[~2022-06-26] MED LIST changes: +CATHETER FLUSH 10 ML SYR IVP PRN; +REGADENOSON 0.4 MG/5 ML SYR (LEXISCAN) IV ONE
[2022-06-26 13:10] VITALS: BP 209/108
--- NOTE | 2022-06-27 07:56 | Cardiology Stress Test Report ---
Stress Test Report Date of Procedure/Referring: Date of Procedure: Jun 26, 2022 PCP No,Local Physician Admitting Physician Admitting Physician: Attending Physician: Arti Pickett Baseline Heart Rate: 87 Baseline Blood Pressure: Blood Pressure Systolic: 209 Blood Pressure Diastolic: 108 Baseline Vitals Vital Signs Date Time Temp Pulse Resp B/P (MAP) Pulse Ox O2 Delivery O2 Flow Rate FiO2 06/26/22 13:10 87 209/108 (141) 94 Baseline EKG: Baseline EKG: NSR Summary After explaining the procedure to the patient, he signed a consent and then brought to the stress nuclear laboratory. Patient received 0.4 mg Lexiscan for stress test, ECG, heart rate and blood pressure were monitored continuously. Resting and stress dose of radio tracer were injected, imaging was acquired and reviewed in short axis, horizontal long axis and vertical long axis views. TID: 1.09 SSS: 8 SDS: 8 EF: 39 Patient tolerated Lexiscan well Baseline hypertension persisted during test Reversible ischemia involving the mid to apical inferior wall and inferoseptum Diffuse left ventricular hypokinesia more pronounced at the inferior wall, ejection fraction 39% DAVID TERESA MD Jun 27, 2022 07:56
== END ==
LOC: CARD 11:35
PROVIDERS: ATTEND Physician Assistant
DX: I11.9 Hypertensive heart disease without heart failure (principal); I25.6 Silent myocardial ischemia
CPT/HCPCS: 78452; 93017; A9502